=== PATIENT | female | born 1985 | race Caucasian/White ===

== ENCOUNTER 2018-04-12 18:07 | Emergency (ER) | payer SELFPAY ==
[~2018-04-12] VITALS: Ht 162.6 cm; Wt 52.2 kg
--- NOTE | 2018-04-12 18:31 | ED GENERAL ADULT ---
See Addendum History of Present Illness General Chief Complaint: ETOH/Drug Related Complaint Stated Complaint: SENT BY [facility] FOR ALCOHOL DETOX Source: patient Exam Limitations: no limitations Vital Signs & Intake/Output Vital Signs & Intake/Output Vital Signs Date Time Temp Pulse Resp B/P B/P Pulse O2 O2 Flow FiO2 Mean Ox Delivery Rate 04/13 1322 98.8 70 16 96/53 100 Room Air 04/13 1121 99.3 77 16 86/50 98 Room Air 04/13 1041 98.7 7 18 92/50 98 Room Air 04/13 0740 97.9 68 20 92/60 04/13 0729 98.7 72 16 90/50 97 Room Air 04/13 0614 88/50 04/13 0612 68 88/50 04/13 0535 98.2 88 18 85/39 04/13 0533 98.2 88 18 85/39 98 Room Air 04/13 0000 98.0 84 20 100/52 04/12 2357 98.0 84 20 100/52 95 Room Air 04/12 2205 92 119/73 04/12 2201 99.3 92 16 119/73 04/12 2201 99.3 92 16 119/73 96 Room Air 04/12 2058 98.7 89 16 113/75 97 Room Air 04/12 1842 97.7 92 20 126/90 04/12 1839 97 Room Air 04/12 1811 97.7 93 20 126/90 96 Room Air ED Intake and Output 04/13 0000 04/12 1200 Intake Total 0 Output Total Balance 0 Intake, Oral 0 Patient 115 lb Weight Weight Estimated Measurement Method Allergies Coded Allergies: No Known Allergies (04/12/18) Triage Note: PT TO ED FOR [facility]AR[facility] FOR ETOH DETOX. 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 ADMITS TO DRUG USE IN THE PAST WEEK. DENIES SI/HI. HAS TRIED DETOX IN THE PAST, DENIES SEIZURES WITH ETOH DETOX. PT APPEARS VERY INTOXICATED. Triage Nurses Notes Reviewed? yes Onset: Abrupt Duration: day(s): Timing: recent history : No Patient currently breastfeeds: No HPI: 04/07/18 6:45 PM 33-year-old female presents to the emergency department for medical clearance for [facility]. The patient states that she has history of alcohol dependency. Her last drink was earlier today. She also a admits to recent cocaine use she denies any chest pain. (Basim Paredes DO) Past History Travel History Traveled to [place] past 21 day No Medical History Any Pertinent Medical History? see below for history Surgical History Surgical History: SHOULDER SURGERY, APPENDECTOMY BY HISTORY Psychosocial History What is your primary language [place]er Tobacco Use: Current Not Daily Daily Tobacco Use Amount/Type: =< 4 Cigarettes daily ETOH Use: alcoholic Illicit Drug Use: cocaine Family History Hx Contributory? No (Basim Paredes DO) Review of Systems Review of Systems Constitutional: Denies: fever. EENTM: Reports: no symptoms. Respiratory: Denies: short of breath. Cardiovascular: Denies: chest pain. GI: Reports: no symptoms. Genitourinary: Reports: no symptoms. Musculoskeletal: Reports: no symptoms. Skin: Reports: no symptoms. Neurological/Psychological: Reports: no symptoms. Hematologic/Endocrine: Reports: no symptoms. Immunologic/Allergic: Reports: no symptoms. (Basim Paredes DO) Physical Exam Physical Exam General Appearance: well developed/nourished, alert, awake, anxious, moderate distress Head: atraumatic, normal appearance Eyes: Bilateral: normal appearance, PERRL, EOMI. Ears, Nose, Throat: normal pharynx, normal ENT inspection Neck: normal inspection, supple Respiratory: normal breath sounds, chest non-tender, no respiratory distress Cardiovascular: regular rate/rhythm Peripheral Pulses: 4+ radial (R), 4+ radial (L) Gastrointestinal: soft, non-tender Back: normal range of motion Extremities: normal range of motion Neurologic/Psych: no motor/sensory deficits, awake, alert Skin: intact, normal color, warm/dry Core Measures ACS in differential dx? No CVA/TIA Diagnosis: No Sepsis Present: No Sepsis Focused Exam Completed? No (Basim Paredes DO) Progress Differential Diagnoses I considered the following diagnoses in my evaluation of the patient: [Alcohol intoxication, cocaine abuse, polysubstance abuse] Plan of Care: Orders Procedure Date/time Status Regular Diet 04/13 B Active CIWA 04/12 1821 Active URINE 04/12 1821 Complete URINE DRUG SCREEN FOR ER ONLY 04/12 1821 Complete URINALYSIS 04/12 1821 Complete ETHANOL 04/12 1821 Complete COMPREHENSIVE METABOLIC PANEL 04/12 1821 Complete CBC WITHOUT DIFFERENTIAL 04/12 1821 Complete Current Medications Sig/Derek Start time Last Medication Dose Stop Time Status Admin Clonidine 0.1 MG Q8 04/12 2115 UNVr 04/12 (Catapres) 2204 Gabapentin 300 MG Q8 04/12 2115 UNVr 04/13 (Neurontin) 614 Trazodone HCl 50 MG AT BEDTIME 04/12 2115 UNVr 04/12 (Desyrel) 2204 Laboratory Tests 04/12/182014: Urine Opiates Screen < 100, Methadone Screen < 40, Barbiturate Screen < 60, Ur Phencyclidine Scrn < 6.00, Amphetamines Screen < 100, U Benzodiazepines Scrn 241 H, Urine Cocaine Screen < 50, Urine Cannabis Screen < 5.00, Urine Color YEL, Urine Clarity CLEAR, Urine pH 6.0, Ur Specific [place] 1.015, Urine Protein NEG, Urine Ketones NEG, Urine Nitrite NEG, Urine Bilirubin NEG, Urine Urobilinogen 0.2, Ur Leukocyte Esterase NEG, Ur Microscopic SEDIMENT EXAMINED, Urine RBC RARE , Urine WBC RARE, Ur Epithelial Cells MOD H, Urine Bacteria FEW H, Urine Mucus FEW, Urine Hemoglobin TRACE-INTACT, Urine Glucose NEG, Urine Test NEGATIVE 04/12/181926: Anion Gap 17 H, Estimated GFR > 60, BUN/Creatinine Ratio 23.3, Glucose 80, Calcium 9.5, Total Bilirubin 0.6, AST 64 H, ALT 55 H, Alkaline Phosphatase 63, Total Protein 7.9, Albumin 4.7, Globulin 3.2, Albumin/Globulin Ratio 1.5, CBC w Diff NO MAN DIFF REQ, RBC 4.65, MCV 93.5, MCH 31.4 H, MCHC 33.6, RDW 13.0, MPV 7.4, Gran % 54.1, Lymphocytes % 38.1, Monocytes % 5.5, Eosinophils % 2.0, Basophils % 0.3, Absolute Granulocytes 3.4, Absolute Lymphocytes 2.4, Absolute Monocytes 0.3, Absolute Eosinophils 0.1, Absolute Basophils 0, Serum Alcohol 348.0 Initial ED EKG: none (Basim Paredes DO) Hand-Off Endorsed To: Jeremy Mai DO Endorsed Time: 0700 Pending: other ([facility]) (Ana SMITH,Yoni) Departure Departure Condition: Stable Clinical Impression Primary Impression: Alcohol abuse Referrals: Patient Has No Primary Care Dr (PCP/Family) Departure Forms: Customer Survey General Discharge Information Comments 04/07/18 6:50 PM The patient will be signed out to Dr. Perez at 7 PM (Basim Paredes DO) Departure Time of Disposition: 1444 Disposition: HOME OR SELF CARE Additional Instructions: Please go directly to [facility] for further treatment. We wish you the best with your recovery. PA/MANAGER SOCIAL Co-Sign Statement Statement: ED Attending supervision documentation- [] I saw and evaluated the patient. I have also reviewed all the pertinent lab results and diagnostic results. I agree with the findings and the plan of care as documented in the PA's/MANAGER SOCIAL's documentation. [x] I have reviewed the ED Record and agree with the PA's/MANAGER SOCIAL's documentation. [] Additions or exceptions (if any) to the PAs/MANAGER SOCIAL's note and plan are summarized below: [] (Jeremy Mai DO) Critical Care Note Critical Care Note Critical Care Time: non-applicable (Basim Paredes DO) Critical Care Note Critical Care Time: non-applicable (Jeremy Mai DO)
[2018-04-12 19:38] LABS: ABSOLUTE BASOPHIL COUNT 0 /CUMM (0.0-0.2); ABSOLUTE EOSINOPHIL COUNT 0.1 /CUMM (0.0-0.7); ABSOLUTE GRANULOCYTE CT 3.4 /CUMM (1.4-6.5); ABSOLUTE LYMPH COUNT 2.4 /CUMM (1.2-3.4); ABSOLUTE MONOCYTE COUNT 0.3 /CUMM (0.10-0.60); BASOPHIL % 0.3 % (0.0-2.0); GRANULOCYTE % 54.1 % (42.2-75.2); HEMATOCRIT 43.4 % (37-47); MEAN CORPUSCULAR HGB 31.4 PG (27.0-31.0); MEAN CORPUSCULAR HGB CONC 33.6 G/DL (33.0-37.0); MEAN CORPUSCULAR VOLUME 93.5 FL (81.0-99.0); MEAN PLATELET VOLUME 7.4 FL (7.4-10.4); PLATELET COUNT 282 /CUMM (130-400); RED BLOOD CELL CT 4.65 /CUMM (4.20-5.40); WHITE BLOOD CELL COUNT 6.4 /CUMM (4.8-10.8)
[2018-04-13 13:22] VITALS: BP 96/53
== END 2018-04-13 14:45 ==
LOC: ERH 18:07
PROVIDERS: Physician Assistant
DX: F10.10 Alcohol abuse, uncomplicated (principal)
CPT/HCPCS: 80307; 81001; 81025; G0480